=== PATIENT | female | born 1930 | race Caucasian/White ===

== ENCOUNTER 2021-02-27 09:12 | Emergency (ER) | payer MEDICARE, BC ==
[2021-02-27 09:46] LABS: CHLORIDE,CL 106 mEq/L (98-106); SODIUM,NA 144 mEq/L (136-145)
[2021-02-27 10:03] LABS: PTT,PARTIAL THROMBOPLSTIN TIME 36.8 SEC (23.2-32.3)
--- NOTE | 2021-02-27 11:46 | EDM.PDOC ---
ED HPI GENERAL MEDICAL PROBLEM - General Chief Complaint: General Stated Complaint: FELL Time Seen by Provider: 02/27/21 09:15 - History of Present Illness INITIAL COMMENTS - FREE TEXT/NARRATIVE: This is an 89-year-old female patient that presents to the emergency department via [facility]. Reported that patient fell at a local fpc facility in [place]. This was a unwitnessed fall per her report where they found her lying beside her bed. Unknown loss of consciousness as patient does not remember falling. EMS reported bilateral forearm skin tears that are covered and were repaired with Steri-Strips prior to arrival. Patient also has bleeding noted to the scalp that is controlled. Patient is awake alert and oriented. GCS is 15. It was reported that she does have episodes of confusion. Patient complains of lower back pain, pain to both forearms, the right shoulder, neck discomfort, and pelvic discomfort. It has been reported that she was moving all extremities. EMS does have a c-collar placed. The patient does take Coumadin per EMS report. - Related Data Allergies Allergy/AdvReac Type Severity Reaction Status Date / Time onion Allergy Other Verified 02/27/21 11:57 ED ROS GENERAL - Review of Systems Review Of Systems: See Below Constitutional: Denies: Fever, Chills, Weakness, Decreased Appetite HEENT: Reports: Hearing Loss. Denies: Ear Discharge, Ear Pain, Nosebleed, Nose Pain Respiratory: Denies: Shortness of Breath, Wheezing, Cough Cardiovascular: Reports: Blood Pressure Problem. Denies: Chest Pain, Dyspnea on Exertion Endocrine: Reports: No Symptoms GI/Abdominal: Denies: Abdominal Pain, Black Stool, Bloody Stool, Constipation, Diarrhea, Nausea : Denies: Dysuria, Flank Pain, Hematuria, Incontinence Musculoskeletal: Reports: Neck Pain, Shoulder Pain, Arm Pain, Back Pain, Muscle Pain Skin: Reports: Bruising (knees), Wound (bilateral forearms, scalp) Neurological: Reports: Confusion. Denies: Dizziness, Seizure, Trouble Speaking Psychiatric: Reports: No Symptoms Hematologic/Lymphatic: Reports: No Symptoms Immunologic: Reports: No Symptoms ED EXAM, GENERAL - Physical Exam Exam: See Below Exam Limited By: No Limitations General Appearance: Alert, WD/WN, No Apparent Distress, Mild Distress Ears: Normal External Exam, Normal Canal, Normal TMs, Hearing Loss Ear Exam: Bilateral Ear: Auricle Normal, Canal Normal, TM normal Nose: Normal Inspection, Normal Mucosa, No Blood Throat/Mouth: Normal Inspection, Normal Gums, Normal Oropharynx, Normal Voice, No Airway Compromise. No: Dysphagia, Inflammation Head: Normocephalic, Other (scalp abrasion) Neck: Normal Inspection, Tender Midline Respiratory/Chest: No Respiratory Distress, Lungs Clear, Normal Breath Sounds, Chest Non-Tender Cardiovascular: Normal Peripheral Pulses, Regular Rate, Rhythm, No Edema, No Gallop, No JVD, No Murmur, No Rub GI/Abdominal: Normal Bowel Sounds, Soft, Non-Tender. No: Distended, Guarding, Rigid, Rebound, Tender (Female) Exam: Normal External Exam. No: Vaginal Bleeding, Vaginal Discharge Rectal (Female) Exam: Deferred Extremities: Normal Range of Motion, Normal Capillary Refill, Arm Pain (bilateral arm pain at area of skin tears, right shoulder pain) Neurological: Alert, Oriented, CN II-XII Intact, Normal Cognition, Confused (at times) Psychiatric: Normal Affect, Normal Mood Skin Exam: Warm, Dry, Normal Color, Ecchymosis (bilateral knees) #1 Interpretation EKG Date: 02/27/21 Time: 09:23 Rhythm: Other (paced rhythm) [place]: Normal EKG Interpretation Comments: Paced rhythm Course - Orders/Labs/Meds Orders: Active Orders 24 hr Category Date Time Status Ready for Discharge [RC] PER UNIT ROUTINE Care 02/27/21 11:42 Ordered Cervical Spine wo Cont [CT] Stat Exams 02/27/21 09:27 Ordered Chest 1V Frontal [CR] Stat Exams 02/27/21 09:57 Ordered Head wo Cont [CT] Routine Exams 02/27/21 Ordered Lumbar Spine wo Cont [CT] Stat Exams 02/27/21 09:27 Ordered Pelvis 1V or 2V [CR] Routine Exams 02/27/21 09:22 Ordered Labs: Laboratory Tests 02/27/21 02/27/21 02/27/21 Range/Units 09:33 09:33 09:33 WBC 9.5 (4.0-11.0) 10^3/uL RBC 3.35 L (4.00-5.50) x10^6/uL Hgb 10.7 L (12.0-16.0) g/dL Hct 32.9 L (37.0-47.0) % MCV 98.2 H (83.0-97.0) fL MCH 31.9 (27.0-32.0) pg MCHC 32.5 (32.0-36.0) g/dL RDW Coeff of Thang 13.0 (11.0-15.0) % Plt Count 251 (150-400) 10^3/uL Immature Gran % (Auto) 0.1 (0.0-4.9) % Neut % (Auto) 70.5 (41-71) % Lymph % (Auto) 19.8 L (24-44) % [place] % (Auto) 8.1 (0-10) % Eos % (Auto) 1.1 (0-6) % Baso % (Auto) 0.4 (0-1) % Neut # (Auto) 6.69 (1.80-8.00) x10^3/uL Lymph # (Auto) 1.88 (0.60-5.00) 10^3/uL [place] # (Auto) 0.77 (0.00-1.50) 10^3/uL Eos # (Auto) 0.10 (0.00-1.50) 10^3/uL Baso # (Auto) 0.04 (0.00-0.50) 10^3/uL Immature Gran # (Auto) 0.01 (0.00-0.49) 10^3/uL PT 28.1 H (9.7-12.3) SEC INR 2.76 H (0.92-1.18) APTT 36.8 H (23.2-32.3) SEC Sodium 144 (136-145) mEq/L Potassium 4.4 (3.5-5.0) mEq/L Chloride 106 (98-106) mEq/L Carbon Dioxide 25 (21-32) mmol/L BUN 26 H (7-18) mg/dL Creatinine 1.0 (0.6-1.0) mg/dL Est Cr Clr Drug Dosing TNP Estimated GFR (MDRD) 52 L (>=60) mL/min Glucose 131 H (75-99) mg/dL Calcium 9.1 (8.4-10.1) mg/dL Total Bilirubin 0.5 (0.0-1.0) mg/dL AST 22 (15-37) U/L ALT 18 (12-78) U/L Alkaline Phosphatase 66 (46-116) U/L Total Protein 6.7 (6.4-8.2) g/dL Albumin 3.4 (3.4-5.0) g/dL Urine Color (YELLOW) Urine Appearance (CLEAR) Urine pH (4.5-8.0) Ur Specific [place] (1.003-1.020) Urine Protein (NEGATIVE) mg/dL Urine Glucose (UA) (NEGATIVE) mg/dL Urine Ketones (NEGATIVE) mg/dL Urine Occult Blood (NEGATIVE) Urine Nitrite (NEGATIVE) Urine Bilirubin (NEGATIVE) Urine Urobilinogen (0.2-1.0) EU/dL Ur Leukocyte Esterase (NEGATIVE) Urine RBC (0-5) /HPF Urine WBC (0-5) /HPF Urinalysis Comment 02/27/21 Range/Units 10:23 WBC (4.0-11.0) 10^3/uL RBC (4.00-5.50) x10^6/uL Hgb (12.0-16.0) g/dL Hct (37.0-47.0) % MCV (83.0-97.0) fL MCH (27.0-32.0) pg MCHC (32.0-36.0) g/dL RDW Coeff of Thang (11.0-15.0) % Plt Count (150-400) 10^3/uL Immature Gran % (Auto) (0.0-4.9) % Neut % (Auto) (41-71) % Lymph % (Auto) (24-44) % [place] % (Auto) (0-10) % Eos % (Auto) (0-6) % Baso % (Auto) (0-1) % Neut # (Auto) (1.80-8.00) x10^3/uL Lymph # (Auto) (0.60-5.00) 10^3/uL [place] # (Auto) (0.00-1.50) 10^3/uL Eos # (Auto) (0.00-1.50) 10^3/uL Baso # (Auto) (0.00-0.50) 10^3/uL Immature Gran # (Auto) (0.00-0.49) 10^3/uL PT (9.7-12.3) SEC INR (0.92-1.18) APTT (23.2-32.3) SEC Sodium (136-145) mEq/L Potassium (3.5-5.0) mEq/L Chloride (98-106) mEq/L Carbon Dioxide (21-32) mmol/L BUN (7-18) mg/dL Creatinine (0.6-1.0) mg/dL Est Cr Clr Drug Dosing Estimated GFR (MDRD) (>=60) mL/min Glucose (75-99) mg/dL Calcium (8.4-10.1) mg/dL Total Bilirubin (0.0-1.0) mg/dL AST (15-37) U/L ALT (12-78) U/L Alkaline Phosphatase (46-116) U/L Total Protein (6.4-8.2) g/dL Albumin (3.4-5.0) g/dL Urine Color Yellow (YELLOW) Urine Appearance Clear (CLEAR) Urine pH 7.0 (4.5-8.0) Ur Specific [place] 1.025 H (1.003-1.020) Urine Protein 30 H (NEGATIVE) mg/dL Urine Glucose (UA) Negative (NEGATIVE) mg/dL Urine Ketones Trace H (NEGATIVE) mg/dL Urine Occult Blood Negative (NEGATIVE) Urine Nitrite Negative (NEGATIVE) Urine Bilirubin Negative (NEGATIVE) Urine Urobilinogen 0.2 (0.2-1.0) EU/dL Ur Leukocyte Esterase Negative (NEGATIVE) Urine RBC 0-5 (0-5) /HPF Urine WBC Not seen (0-5) /HPF Urinalysis Comment Departure - Departure Time of Disposition: 11:43 Disposition: Home, Self-Care 01 Clinical Impression: Back pain, Contusion of knee, Scalp abrasion, non-infected, Skin tear of forear m without complication, Unwitnessed fall - Discharge Information *PRESCRIPTION DRUG MONITORING PROGRAM REVIEWED*: Not Applicable *COPY OF PRESCRIPTION DRUG MONITORING REPORT IN PATIENT STACY: Not Applicable Instructions: Fall Prevention in the Home, Adult, [id number] Additional Instructions: 1. Monitor BP daily x 1 week. 2. May use tylenol as needed for pain 3. Activity as tolerated with walker. 4. Follow-up with PCP if BP remains elevated. 5. Call or return if any further concerns. - Problem List & Annotations (1) Back pain SNOMED Code(s): 662123958 Code(s): M54.9 - DORSALGIA, UNSPECIFIED Status: Acute Qualifiers: Back pain location: low back pain Chronicity: chronic Back pain lateralit y: bilateral Sciatica presence: without sciatica Qualified Code(s): M54.50 - Low back pain, unspecified; G89.29 - Other chronic pain (2) Skin tear of forearm without complication SNOMED Code(s): 752257922, 283753529 Code(s): S51.819A - LACERATION WITHOUT FOREIGN BODY OF UNSP FOREARM, INIT ENCNTR Status: Acute Qualifiers: Encounter type: initial encounter Laterality: unspecified laterality Qualified Code(s): S51.819A - Laceration without foreign body of unspecified forearm, initial encounter (3) Contusion of knee SNOMED Code(s): 76384227 Code(s): S80.00XA - CONTUSION OF UNSPECIFIED KNEE, INITIAL ENCOUNTER Status: Acute (4) Scalp abrasion, non-infected SNOMED Code(s): 42387899, 398832852 Code(s): S00.01XA - ABRASION OF SCALP, INITIAL ENCOUNTER Status: Acute (5) Unwitnessed fall SNOMED Code(s): 2788381 Code(s): R29.6 - REPEATED FALLS Status: Acute - My Orders Last 24 Hours: My Active Orders 02/27/21 Head wo Cont [CT] Routine 02/27/21 09:22 Pelvis 1V or 2V [CR] Routine 02/27/21 09:27 Cervical Spine wo Cont [CT] Stat Lumbar Spine wo Cont [CT] Stat 02/27/21 09:57 Chest 1V Frontal [CR] Stat 02/27/21 11:42 Ready for Discharge [RC] PER UNIT ROUTINE - Assessment/Plan Last 24 Hours: My Active Orders 02/27/21 Head wo Cont [CT] Routine 02/27/21 09:22 Pelvis 1V or 2V [CR] Routine 02/27/21 09:27 Cervical Spine wo Cont [CT] Stat Lumbar Spine wo Cont [CT] Stat 02/27/21 09:57 Chest 1V Frontal [CR] Stat 02/27/21 11:42 Ready for Discharge [RC] PER UNIT ROUTINE Plan: This is an 89-year-old female that presented by ambulance having fallen at a local [facility]pc facility unwitnessed. Upon arrival to the ED patient was awake alert and answering questions appropriately. Patient was wearing a c- collar and is on Coumadin. Labs, x-ray and CT scans were performed. Labs were unremarkable. She does have an INR of 2.7. A UA was collected showing no evidence of infection. X-ray chest, pelvis, and CT of head, C-spine, and L- spine obtained. X-ray of chest and pelvis were personally reviewed with no acute injury noted. CT scan scan of the head, C-spine, lumbar spine were personally reviewed and awaited results from the radiologist. Age indeterminant wedge fractures of T11, T12 and L2. Significant scoliosis of the lumbar spine. C-spine with no evidence of acute injury. CT had showed no evidence of intra cranial bleed or acute processes. Patient was identified to have unrelated concerns with gallstones in the gallbladder and constipation. Upon receiving imaging results, palpated the cervical spine without significant midline discomfort and c-collar was removed at that time. Patient was assisted to a sitting position and then to a standing position with the use of gait belt and walker. The patient stated her pain to her lower back was similar to her chronic pain. Patient was able to ambulate in hallway. She did have an elevated blood pressure in the 180s to 190s systolic throughout the emergency department stay. Patient is on carvedilol as well as lisinopril to control blood pressure and it is unknown if she received her medications this morning. See nurses note and longterm documentation for past medical history, surgical history, medications, allergies, and social history. I personally reviewed the longterm records. Plan to return to fpc facility. Patient may take Tylenol as needed for pain control as prescribed and her as needed medications. Blood pressure should be monitored through the next week daily and if it remains elevated she should be reassessed by her primary care provider. The skins tears to both forearms are appropriately secured with Steri-Strips. The scalp abrasion requires no treatment. Should be kept clean and dry and monitor for signs of any infection. May return to activity as tolerated using a walker.
== END 2021-02-27 12:30 | disposition home or self-care (01) ==
LOC: CC.ED 09:12
DX: S51.812A Laceration without foreign body of left forearm, initial encounter (principal); S51.811A Laceration without foreign body of right forearm, initial encounter; S06.9X9A Unspecified intracranial injury with loss of consciousness of unspecified duration, initial encounter; S80.01XA Contusion of right knee, initial encounter; S80.02XA Contusion of left knee, initial encounter; S00.01XA Abrasion of scalp, initial encounter; M54.50 Low back pain, unspecified; Z91.018 Allergy to other foods; W18.39XA Other fall on same level, initial encounter; Y92.129 Unspecified place in nursing home as the place of occurrence of the external cause
CPT/HCPCS: 36415; 70450; 71045; 72125; 72131; 72170; 80053; 81001; 85025; 85610; 85730; 93005; 93010; 99284; 99284-25

== ENCOUNTER 2021-02-28 14:15 | Observation (INO) | payer MEDICARE, BC ==
[2021-02-28] MEDS ORDERED: Diphtheria,Pertussis(Acell),Tetanus Vaccine 0.5 ML Syringe IM ONE ×2 (14:34→20:00)
[2021-02-28 14:49] LABS: CHLORIDE,CL 105 mEq/L (98-106); SODIUM,NA 144 mEq/L (136-145)
--- NOTE | 2021-02-28 15:10 | EDM.PDOC ---
ED HPI GENERAL MEDICAL PROBLEM - General Chief Complaint: Trauma Stated Complaint: Fall, confusion Time Seen by Provider: 02/28/21 14:25 Source of Information: Reports: Patient, Snf Records History Limitations: Reports: Altered Mental Status - History of Present Illness INITIAL COMMENTS - FREE TEXT/NARRATIVE: This is an 89 female presents to the emergency department for fall [facility] a local [facility] via [facility]. Patient was seen yesterday after a fall as well. Reportedly fell backwards and struck the back of her head from a standing position. Has increased confusion today. The [facility] staff thought they had saw a right side facial droop. Patient is awake and able to converses and described how she fell today. Patient does not remember being seen in the emergency department yesterday. [facility] staff reports that she is fallen 3 times in the last 24 hours. Patient denies chest pain, shortness of breath, any recent fever or illness. The [facility] staff is present in the ER and reported that she had a "goose egg" on the back of her head. Patient does report pain to the left hip and pelvic area which is unchanged from yesterday. Onset: Today Onset Date: 02/28/21 Onset Time: 13:15 Location: Reports: Head Quality: Reports: Ache Severity: Moderate Worsens with: Reports: None Associated Symptoms: Reports: Confusion, Headaches. Denies: Diaphoresis, Fever/Chills, Loss of Appetite, Nausea/Vomiting, Shortness of Breath - Related Data Allergies Allergy/AdvReac Type Severity Reaction Status Date / Time aspirin Allergy Unknown Other Verified 02/28/21 18:15 hydrocodone Allergy Unknown Other Verified 02/28/21 18:15 iodine Allergy Unknown Other Verified 02/28/21 18:15 onion Allergy Unknown Other Verified 02/28/21 18:15 Penicillins Allergy Unknown Other Verified 02/28/21 18:15 Home Meds: Home Meds Acetaminophen [Tylenol] 1,000 mg PO Q8H PRN 02/27/21 [History] Cetirizine HCl [All Day Allergy Relief] 10 mg PO BEDTIME 02/27/21 [History] DULoxetine HCl [Duloxetine HCl] 90 mg PO DAILY 02/27/21 [History] Docusate Sodium/Sennosides [Senokot-S] 1 tab PO BID 02/27/21 [History] Furosemide 20 mg PO DAILY 02/27/21 [History] Levothyroxine Sodium [Levothyroxine] 100 mcg PO DAILY 02/27/21 [History] Loteprednol Etabonate [Lotemax] 1 drop OP DAILY 02/27/21 [History] Melatonin 5 mg PO BEDTIME 02/27/21 [History] Multivitamin/Folic Acid/Biotin [Hair, Skin and Nails Tablet] 2 each PO DAILY 02/27/21 [History] Omeprazole 20 mg PO DAILY 02/27/21 [History] Oxybutynin Chloride 2.5 mg PO BID 02/27/21 [History] Saccharomyces Boulardii 250 mg PO DAILY 02/27/21 [History] Warfarin [Coumadin] 4 mg PO DAILY 02/27/21 [History] Warfarin [Coumadin] 5 mg PO DAILY 02/27/21 [History] lisinopriL [Lisinopril] 10 mg PO DAILY 02/27/21 [History] polyethylene glycoL 3350 [MiraLAX] 17 gm PO DAILY 02/27/21 [History] ED ROS GENERAL - Review of Systems Review Of Systems: See Below Constitutional: Reports: Weakness. Denies: Fever, Chills HEENT: Reports: Hearing Loss. Denies: Vertigo Respiratory: Denies: Shortness of Breath, Wheezing, Cough Cardiovascular: Denies: Chest Pain, Dyspnea on Exertion, Edema, Syncope GI/Abdominal: Denies: Abdominal Pain, Black Stool, Bloody Stool, Nausea, Vomiting : Denies: Dysuria, Flank Pain, Frequency, Hematuria, Incontinence Skin: Reports: Bruising (bilateral knee bruising), Wound (Old skin tears to bilateral forearms) Neurological: Reports: Confusion, Headache. Denies: Numbness Psychiatric: Reports: Confusion Hematologic/Lymphatic: Reports: No Symptoms Immunologic: Reports: No Symptoms ED EXAM, GENERAL - Physical Exam Exam: See Below Exam Limited By: Altered Mental Status (confusion) General Appearance: Alert, Mild Distress Ears: Normal External Exam, Hearing Loss Nose: Normal Inspection, No Blood Throat/Mouth: Normal Inspection, Normal Lips, Normal Voice, No Airway Compromise Head: Normocephalic, Other (tenderness and swelling to occipital region, subtle right side facial droop noted) Neck: Supple, Non-Tender, Full Range of Motion Respiratory/Chest: No Respiratory Distress, Lungs Clear, Normal Breath Sounds, No Accessory Muscle Use, Chest Non-Tender. No: Decreased Breath Sounds, Crackles, Rales, Rhonchi, Wheezing Cardiovascular: Normal Peripheral Pulses, Regular Rate, Rhythm, No Gallop, No JVD, No Murmur, No Rub GI/Abdominal: Normal Bowel Sounds, Soft, Non-Tender, No Organomegaly, No Distention, No Abnormal Bruit, Pelvis Stable, Other (left side tenderness to pelvis upon palpation) (Female) Exam: Deferred Rectal (Female) Exam: Deferred Back Exam: Normal Inspection, Full Range of Motion, Decreased Range of Motion. No: CVA Tenderness (L), CVA Tenderness (R) Extremities: Normal Inspection, Normal Range of Motion, Normal Capillary Refill, Pedal Edema (wearing CAROL hose) Neurological: Alert, CN II-XII Intact, Confused, Disoriented, Memory Loss Remote Events Psychiatric: Normal Affect, Normal Mood Skin Exam: Warm, Dry, Normal Color, Ecchymosis (bilateral knees), Wound/Incision (old skin tears to the bilateral forearms with steri-strips) Lymphatic: No Adenopathy #1 Interpretation EKG Date: 02/28/21 Time: 14:30 Rhythm: Other (Paced rhythms) [place]: Normal QRS: Normal ST-T: Normal QT: Normal Comparison: No Change EKG Interpretation Comments: Paced rhythm without acute ST changes. Course - Vital Signs Last Recorded V/S: Last Vital Signs Temp 97.3 F 02/28/21 18:21 Pulse 68 02/28/21 18:21 Resp 20 02/28/21 18:21 BP 167/82 H 02/28/21 18:21 Pulse Ox 95 02/28/21 18:21 - Orders/Labs/Meds Orders: Active Orders 24 hr Category Date Time Status Head wo Cont [CT] Stat Exams 02/28/21 14:26 Taken Medication Orders Acetaminophen (Acetaminophen 325 Mg Tab) 650 mg PO Q4H PRN PRN Reason: Pain (Mild 1-3)/fever Clopidogrel Bisulfate (Clopidogrel 75 Mg Tab) 75 mg PO DAILY [facility] Duloxetine HCl (Duloxetine 30 Mg Cap) 90 mg PO DAILY [facility] Furosemide (Furosemide 20 Mg Tab) 20 mg PO DAILY [facility] Lisinopril (Lisinopril 10 Mg Tab) 10 mg PO DAILY [facility] Non-Formulary Medication (Levothyroxine Sodium [Levothyroxine]) 100 mcg PO DAILY [facility] Non-Formulary Medication (Loteprednol Etabonate [Lotemax]) 1 drop OP DAILY [facility] Non-Formulary Medication (Omeprazole [Omeprazole]) 20 mg PO DAILY [facility] Ondansetron HCl (Ondansetron 4 Mg Tab.Dis) 4 mg PO Q6H PRN PRN Reason: nausea, able to take PO Oxybutynin Chloride (Oxybutynin 5 Mg Tab) 2.5 mg PO BID [facility] Polyethylene Glycol (Polyethylene Glycol 3350 Powder 17 Gm Packet) 17 gm PO DAILY [facility] Sodium Chloride (Sodium Chloride 0.9% 10 Ml Syringe) 10 ml FLUSH ASDIRECTED PRN PRN Reason: Keep Vein Open Warfarin Sodium (Warfarin 5 Mg Tab) 4 mg PO DAILY [facility] Warfarin Sodium (Warfarin 5 Mg Tab) 5 mg PO DAILY [facility] Labs: Laboratory Tests 02/28/21 02/28/21 02/28/21 Range/Units 14:32 14:32 14:32 WBC 7.4 (4.0-11.0) 10^3/uL RBC 3.31 L (4.00-5.50) x10^6/uL Hgb 10.6 L (12.0-16.0) g/dL Hct 32.4 L (37.0-47.0) % MCV 97.9 H (83.0-97.0) fL MCH 32.0 (27.0-32.0) pg MCHC 32.7 (32.0-36.0) g/dL RDW Coeff of Thang 13.2 (11.0-15.0) % Plt Count 271 (150-400) 10^3/uL Immature Gran % (Auto) 0.4 (0.0-4.9) % Neut % (Auto) 63.6 (41-71) % Lymph % (Auto) 23.9 L (24-44) % [place] % (Auto) 8.4 (0-10) % Eos % (Auto) 3.2 (0-6) % Baso % (Auto) 0.5 (0-1) % Neut # (Auto) 4.70 (1.80-8.00) x10^3/uL Lymph # (Auto) 1.77 (0.60-5.00) 10^3/uL [place] # (Auto) 0.62 (0.00-1.50) 10^3/uL Eos # (Auto) 0.24 (0.00-1.50) 10^3/uL Baso # (Auto) 0.04 (0.00-0.50) 10^3/uL Immature Gran # (Auto) 0.03 (0.00-0.49) 10^3/uL PT 28.0 H (9.7-12.3) SEC INR 2.75 H (0.92-1.18) Sodium 144 (136-145) mEq/L Potassium 4.0 (3.5-5.0) mEq/L Chloride 105 (98-106) mEq/L Carbon Dioxide 28 (21-32) mmol/L BUN 24 H (7-18) mg/dL Creatinine 1.2 H (0.6-1.0) mg/dL Est Cr Clr Drug Dosing TNP Estimated GFR (MDRD) 42 L (>=60) mL/min Glucose 133 H (75-99) mg/dL Calcium 9.2 (8.4-10.1) mg/dL Total Bilirubin 0.6 (0.0-1.0) mg/dL AST 22 (15-37) U/L ALT 21 (12-78) U/L Alkaline Phosphatase 61 (46-116) U/L Troponin I High Sens 405.9 H* (<=51) pg/mL C-Reactive Protein < 0.2 L (0.2-0.8) mg/dL Total Protein 6.8 (6.4-8.2) g/dL Albumin 3.3 L (3.4-5.0) g/dL Meds: Medications Generic Name Dose Route Start Last Admin Trade Name Freq PRN Reason Stop Dose Admin Acetaminophen 650 mg 02/28/21 18:21 Acetaminophen 325 Mg Tab PO Q4H PRN Pain (Mild 1-3)/fever Clopidogrel Bisulfate 75 mg 03/01/21 08:00 Clopidogrel 75 Mg Tab PO DAILY [facility] Duloxetine HCl 90 mg 03/01/21 08:00 Duloxetine 30 Mg Cap PO DAILY [facility] Furosemide 20 mg 03/01/21 08:00 Furosemide 20 Mg Tab PO DAILY [facility] Lisinopril 10 mg 03/01/21 08:00 Lisinopril 10 Mg Tab PO DAILY [facility] Non-Formulary Medication 100 mcg 03/01/21 08:00 Levothyroxine Sodium [Levothyroxine] PO DAILY [facility] Non-Formulary Medication 1 drop 03/01/21 08:00 Loteprednol Etabonate [Lotemax] OP DAILY [facility] Non-Formulary Medication 20 mg 03/01/21 08:00 Omeprazole [Omeprazole] PO DAILY [facility] Ondansetron HCl 4 mg 02/28/21 18:21 Ondansetron 4 Mg Tab.Dis PO Q6H PRN nausea, able to take PO Oxybutynin Chloride 2.5 mg 02/28/21 20:00 Oxybutynin 5 Mg Tab PO BID [facility] Polyethylene Glycol 17 gm 03/01/21 08:00 Polyethylene Glycol 3350 Powder 17 Gm Packet PO DAILY [facility] Sodium Chloride 10 ml 02/28/21 18:21 Sodium Chloride 0.9% 10 Ml Syringe FLUSH ASDIRECTED PRN Keep Vein Open Warfarin Sodium 4 mg 03/01/21 08:00 Warfarin 5 Mg Tab PO DAILY [facility] Warfarin Sodium 5 mg 03/01/21 08:00 Warfarin 5 Mg Tab PO DAILY [facility] Discontinued Medications Generic Name Dose Route Start Last Admin Trade Name Freq PRN Reason Stop Dose Admin Clopidogrel Bisulfate 300 mg 02/28/21 18:13 Clopidogrel 75 Mg Tab PO 02/28/21 18:14 ONETIME ONE Diphtheria/Tetanus/Acell Pertussis 0.5 ml 02/28/21 14:34 Diphtheria,Pertussis(Acell),Tetanus Vaccine 0.5 Ml Syringe IM 02/28/21 14:35 .ONCE ONE - Re-Assessments/Exams Free Text/Narrative Re-Assessment/Exam: This is a pleasant 89 year old female that has been evaluated for fall and possible stroke. The patient was seen yesterday for a fall at local [facility]. Had more confusion today and possibly a slight facial droop. She had struck the back of her head today. Previous injuries in HPI and ROS. A CT head was completed and compared to the one obtained yesterday. I personally reviewed these and saw no evidence of acute bleed or infarct. Radiologist report confirmed that there was no acute findings although had chronic findings of previous infarcts. Labs obtained included CBC, CMP, CRP, INR, and Troponin. CBC, CMP, and CRP unremarkable. Troponin 405. 12-lead EKG unchanged from yeste rday showing an atrial paced rhythm without acute ST changes. Discussed findings with family and Leanna, daughter and POA, would like patient admitted to monitor Troponin levels. They do not want the patient to be transferred. She also wanted us to speak with cardiology and discuss patient's findings to determine if there would be any changes to medical management or treatment. I spoke with Dr. Horn at [facility] via [facility]. He recommended to administer ASA 325 mg, however patient has ASA listed as and allergy. He wanted us to find out what the true allergy was and recommended not to give it if angioedema or hives. Family unsure of what allergy is, so it will not be given. He further said if patient would require angiogram that he would hold the Coumadin and start heparin if the INR drops to less that 2. The family has expressed they would not want transfer for angiogram. Lastly, he stated that he would suggest 300 mg Plavix po tonight and keep her on 75 mg Plavix po daily indefinitely along with Coumadin that is presently prescribed. These recommendations have been discussed with family and will plan to start the Plavix per cardiology recommendation and family approval. Will admit to the medical surgical unit observation with telemetry, serial Troponin, and neuro checks. Departure - Departure Time of Disposition: 17:48 Disposition: Refer to Observation Condition: Fair Clinical Impression: Elevated troponin level, Confusion Fall Qualifiers: Encounter type: subsequent encounter Qualified Code(s): W19.XXXD - Unspecified fall, subsequent encounter - Discharge Information *PRESCRIPTION DRUG MONITORING PROGRAM REVIEWED*: Not Applicable *COPY OF PRESCRIPTION DRUG MONITORING REPORT IN PATIENT STACY: Not Applicable
[2021-02-28] MEDS ORDERED: Clopidogrel 75 MG Tab PO ONE (18:13)
[2021-02-28] MEDS ORDERED: Sodium Chloride 0.9% 10 ML Syringe FLUSH PRN (18:21)
[2021-02-28] MEDS ORDERED: Ondansetron 4 MG Tab.DIS PO PRN (18:21)
[2021-02-28] MEDS ORDERED: Acetaminophen 325 MG Tab PO PRN (18:21)
[2021-02-28] MEDS ORDERED: Oxybutynin 5 MG Tab PO ONE (20:00)
[2021-03-01] MEDS: Polyethylene Glycol 3350 Powder 17 GM Packet PO SCH (07:41)
[2021-03-01] MEDS: Clopidogrel 75 MG Tab PO SCH (07:41)
[2021-03-01] MEDS ORDERED: LOTEPREDNOL ETABONATE OP SCH (08:00)
[2021-03-01] MEDS: OMEPRAZOLE 20 MG PO SCH (08:54)
[2021-03-01] MEDS: Furosemide 20 MG Tab **PTOM PO SCH (08:55)
[2021-03-01] MEDS ORDERED: CARVEDILOL 12.5 MG PO SCH (09:30)
[2021-03-01] MEDS: CARVEDILOL 12.5 MG PO SCH ×2 (09:32→17:59)
[2021-03-01] MEDS: OXYBUTYNIN 5 MG PO SCH ×2 (09:32→19:41)
--- NOTE | 2021-03-01 12:59 | PN ---
DATE: 03/01/2021 S: Mrs. Joyce is an 89-year-old from [facility] who has had multiple falls in the last few days. She was evaluated initially after hitting her head and had a negative CT scan. She basically was sent back to the home, fell again, and has been progressively weak. So, they sent her back here. She was evaluated and had a followup CAT scan. Her lab work, including her INR, has been fine, and she was ultimately admitted due to her weakness and also the fact that she had an elevated troponin of 352. She is anticoagulated for, I believe, atrial fibrillation. She has had an aspirin allergy. Cardiology was notified and felt that she should be put on aspirin, heparin, etc. Family did not want a lot of aggressive done and certainly did not want her transferred for angiogram. O: GENERAL: She is pleasant and appropriate to conversation, although she keeps her eyes closed, and she does look a little tired. NECK: She has flat neck veins. RESPIRATORY: Her lungs sounds are without signs of failure. CARDIAC: Tones are irregular. ABDOMEN: Soft. EXTREMITIES: She has no peripheral edema. LABORATORY DATA: Lab work is reviewed from today, and her troponin is down from 352 to 269. Prior EKG shows a paced rhythm. ASSESSMENT: 1. MULTIPLE FALLS. 2. WEAKNESS. 3. POSSIBLE NON-ST ELEVATION MYOCARDIAL INFARCTION. P: Family does not want aggressive measures. We will keep her one more day and make sure her troponin continues to decline. Try to get her a little stronger before going back to the home. Clinically, she looks pretty normal today. She denies any and all chest pain. She will not take aspirin, and plan at this time is to not put her on heparin for 48 hours for a possible cardiac event. CODY/LIDA /[id number]
[2021-03-01] MEDS ORDERED: DULOXETINE 60 MG PO SCH (20:00)
[2021-03-01] MEDS ORDERED: ATORVASTATIN 40 MG PO SCH (20:00)
[2021-03-01] MEDS ORDERED: DULOXETINE 30 MG PO SCH (20:00)
[2021-03-01] MEDS ORDERED: WARFARIN 4 MG PO SCH (20:00)
[2021-03-02] MEDS: OMEPRAZOLE 20 MG PO SCH (06:32)
[2021-03-02] MEDS: Clopidogrel 75 MG Tab PO SCH (07:52)
[2021-03-02] MEDS: CARVEDILOL 12.5 MG PO SCH (07:52)
[2021-03-02] MEDS: Polyethylene Glycol 3350 Powder 17 GM Packet PO SCH (07:52)
[2021-03-02] MEDS: OXYBUTYNIN 5 MG PO SCH (07:54)
[2021-03-02] MEDS: Furosemide 20 MG Tab **PTOM PO SCH (07:55)
--- NOTE | 2021-03-02 09:53 | PCM.DCSUM1 ---
Discharge Summary - Hospital Course Free Text/Narrative:: Mrs. Joyce 89-year-old female was admitted 2 days ago with multiple falls and increased confusion. She was evaluated twice in the emergency and was admitted following the second visit. She had also had increased confusion per reports from half-way and family upon returning. CT of head showed no acute changes and labs were obtained. INR in therapeutic range. UA negative. Troponin was elevated at 405.9. The decision was made with family to admit and trend the troponin levels, consult cardiology, and add Plavix for pharmacological management. Family wishes that no aggressive measures to be taken but continue medical management. Troponin levels have trended down from 405.9 on admit to 153.9 today. This is down from 269.8 yesterday. Plavix was started per cardiology recommendation receiving an initial dose of 300 mg and then 75 mg po daily. Patient has not had any chest pain. She is awake but has periods of confusion that is unchanged. Plan to discharge home to the [facility]. Discussed obtaining and echocardiogram with daughter and family wishes not to order this exam. Will continue Plavix 75 mg po daily and continuing all current medications. Follow-up with PCP in one week with INR at that time and as needed. HPI Initial Comments: This is a 64 year old female that was seen and evaluated in the ED with multiple falls and increased confusion from [facility]. Patient has several radiological exams including a CT of head. Patient had struck the back of her head. The CT scans showed no acute findings. The half-way staff and family stated that she had increased confusion. Was admitted to trend troponin levels, consult cardiology for medical management, as family wishes no aggressive measures. Diagnosis: Stroke: No - Discharge Data Discharge Date: 03/02/21 Discharge Disposition: Home, Self-Care 01 Condition: Fair - Referral to Home Health Primary Care Physician: PCP Unknown - Patient Instructions Diet: Usual Diet as Tolerated Activity: As Tolerated - Discharge Plan *PRESCRIPTION DRUG MONITORING PROGRAM REVIEWED*: Not Applicable *COPY OF PRESCRIPTION DRUG MONITORING REPORT IN PATIENT STACY: Not Applicable Prescriptions/Med Rec: Clopidogrel [Plavix] 75 mg PO DAILY 30 Days #30 tablet Home Medications: Home Meds Acetaminophen [Tylenol] 1,000 mg PO Q8H PRN 02/27/21 [History] Cetirizine HCl [All Day Allergy Relief] 10 mg PO BEDTIME 02/27/21 [History] DULoxetine HCl [Duloxetine HCl] 90 mg PO DAILY 02/27/21 [History] Docusate Sodium/Sennosides [Senokot-S] 1 tab PO BID 02/27/21 [History] Furosemide 20 mg PO DAILY 02/27/21 [History] Levothyroxine Sodium [Levothyroxine] 100 mcg PO DAILY 02/27/21 [History] Loteprednol Etabonate [Lotemax] 1 drop OP DAILY 02/27/21 [History] Melatonin 5 mg PO BEDTIME 02/27/21 [History] Multivitamin/Folic Acid/Biotin [Hair, Skin and Nails Tablet] 2 each PO DAILY 02/27/21 [History] Omeprazole 20 mg PO DAILY 02/27/21 [History] Oxybutynin Chloride 2.5 mg PO BID 02/27/21 [History] Saccharomyces Boulardii 250 mg PO DAILY 02/27/21 [History] Warfarin [Coumadin] 4 mg PO DAILY 02/27/21 [History] Warfarin [Coumadin] 5 mg PO DAILY 02/27/21 [History] lisinopriL [Lisinopril] 10 mg PO DAILY 02/27/21 [History] polyethylene glycoL 3350 [MiraLAX] 17 gm PO DAILY 02/27/21 [History] atorvaSTATin [Lipitor] 40 mg PO BEDTIME 03/01/21 [History] carvediloL [Coreg] 12.5 mg PO BID 03/01/21 [History] Clopidogrel [Plavix] 75 mg PO DAILY 30 Days #30 tablet 03/02/21 [Rx] Forms: ED Department Discharge Referrals: PCP,Unknown [Primary Care Provider] - - Discharge Summary/Plan Comment DC Time >30 min.: Yes Total # of Minutes for Discharge Time: 45 minutes with assessment, discussion with family, and discharge orders. Discharge Summary/Plan Comment: 1. Follow-up with Dr. Wilder in one week and as needed. 2. INR check prior to appointment. 3. Start Plavix 75 mg by mouth daily. 4. Continue all regularly scheduled and prescription medications. 5. Fall prevention education provided. 6. Activity as tolerated. 7. Diet as usual. 8. Call or return with any questions or worsening condition. - General Info Date of Service: 03/02/21 Admission Dx/Problem (Free Text: Elevated Troponin, Falls, Confusion, Possible non-elevated stemi Subjective Update: Most joyce is an 89-year-old female from the half-way who had fallen multiple times and evaluated twice in the emergency department. She had been evaluated and CT scans were obtained with no changes. She returned a second time to the emergency department after falling and striking the back of her head. Was reevaluated at that time a CT head was unchanged. INR was within therapeutic range. She was found to have increased weakness and confusion. She does have a pacemaker and EKG showed a paced rhythm. Troponin was elevated upon admission. Functional Status: Reports: Pain Controlled, Tolerating Diet - Review of Systems General: Reports: Weakness. Denies: Fever, Fatigue, Malaise, Chills HEENT: Reports: No Symptoms Pulmonary: Denies: Shortness of Breath, Pleuritic Chest Pain, Cough Cardiovascular: Denies: Chest Pain, Palpitations, Dyspnea on Exertion, Lightheadedness Gastrointestinal: Reports: Decreased Appetite. Denies: Abdominal Pain, Constipation, Diarrhea, Nausea, Vomiting Genitourinary: Denies: Dysuria, Frequency, Burning Musculoskeletal: Reports: Back Pain Skin: Reports: No Symptoms Neurological: Reports: Confusion, Weakness. Denies: Headache, Numbness, Paresthesia, Syncope, Trouble Speaking Psychiatric: Reports: Confusion - Patient Data Vitals - Most Recent: Last Vital Signs Temp 97.2 F 03/02/21 08:00 Pulse 80 03/02/21 08:00 Resp 15 03/02/21 08:00 BP 142/63 H 03/02/21 08:00 Pulse Ox 94 L 03/02/21 08:00 Weight - Most Recent: 122 lb 12.8 oz Lab Results - Last 24 hrs: Laboratory Results - last 24 hr 03/02/21 Range/Units 07:11 Troponin I High Sens 153.9 H* (<=51) pg/mL Med Orders - Current: Current Medications Acetaminophen (Acetaminophen 325 Mg Tab) 650 mg PO Q4H PRN PRN Reason: Pain (Mild 1-3)/fever Last Admin: 03/02/21 09:30 Dose: 650 mg Documented by: Carvedilol (Carvedilol 12.5 Mg Tab Ptom) 12.5 mg PO BIDMEALS [facility] Last Admin: 03/02/21 07:52 Dose: 12.5 mg Documented by: Clopidogrel Bisulfate (Clopidogrel 75 Mg Tab) 75 mg PO DAILY [facility] Last Admin: 03/02/21 07:52 Dose: 75 mg Documented by: Duloxetine HCl (Duloxetine 30 Mg Cap Ptom) 30 mg PO BEDTIME [facility] Last Admin: 03/01/21 19:42 Dose: 30 mg Documented by: Furosemide (Furosemide 20 Mg Tab Ptom) 20 mg PO DAILY [facility] Last Admin: 03/02/21 07:55 Dose: 20 mg Documented by: Levothyroxine Sodium (Levothyroxine 100 Mcg Tab Ptom) 100 mcg PO AC BREAKFAST [facility] Last Admin: 03/02/21 07:53 Dose: 100 mcg Documented by: Lisinopril (Lisinopril 10 Mg Tab Ptom) 10 mg PO DAILY [facility] Last Admin: 03/02/21 07:54 Dose: 10 mg Documented by: Non-Formulary Medication (Loteprednol Etabonate [Lotemax]) 1 drop OP DAILY [facility] Omeprazole [ Omeprazole] 20 Mg Tablet.Dr Ptom 0 mg PO ACBREAKFAST [facility] Last Admin: 03/02/21 06:32 Dose: 20 mg Documented by: Warfarin 4mg Tab (Ptom) 0 each PO [email or web address] [facility] Last Admin: 03/01/21 19:41 Dose: 1 each Documented by: Duloxetine 60mg Cap (Ptom) 0 each PO BEDTIME [facility] Last Admin: 03/01/21 19:40 Dose: 1 each Documented by: Atorvastatin [ Lipitor] 40 Mg Tablet Ptom 0 mg PO BEDTIME [facility] Last Admin: 03/01/21 19:40 Dose: 40 mg Documented by: Ondansetron HCl (Ondansetron 4 Mg Tab.Dis) 4 mg PO Q6H PRN PRN Reason: nausea, able to take PO Oxybutynin Chloride (Oxybutynin 5 Mg Tab Ptom) 2.5 mg PO BID [facility] Last Admin: 03/02/21 07:54 Dose: 2.5 mg Documented by: Polyethylene Glycol (Polyethylene Glycol 3350 Powder 17 Gm Packet) 17 gm PO DAILY [facility] Last Admin: 03/02/21 07:52 Dose: 17 gm Documented by: Sodium Chloride (Sodium Chloride 0.9% 10 Ml Syringe) 10 ml FLUSH ASDIRECTED PRN PRN Reason: Keep Vein Open Warfarin Sodium (Warfarin 5 Mg Tab Ptom) 5 mg PO [id number] [facility] Discontinued Medications Carvedilol (Carvedilol 12.5 Mg Tab Ptom) 12.5 mg PO BID [facility] Clopidogrel Bisulfate (Clopidogrel 75 Mg Tab) 300 mg PO ONETIME ONE Stop: 02/28/21 18:14 Last Admin: 02/28/21 18:51 Dose: 300 mg Documented by: Diphtheria/Tetanus/Acell Pertussis (Diphtheria,Pertussis(Acell),Tetanus Vaccine 0.5 Ml Syringe) 0.5 ml IM .ONCE ONE Stop: 02/28/21 20:01 Last Admin: 02/28/21 19:46 Dose: 0.5 ml Documented by: Oxybutynin Chloride (Oxybutynin 5 Mg Tab) 2.5 mg PO ONETIME ONE Stop: 02/28/21 20:01 Last Admin: 02/28/21 19:35 Dose: 2.5 mg Documented by: - Exam General: Reports: Alert, No Acute Distress, Other (episodes of confusion) HEENT: Reports: Pupils Equal, Pupils Reactive Neck: Reports: Supple, Trachea Midline, No JVD Lungs: Reports: Clear to Auscultation, Normal Respiratory Effort Cardiovascular: Reports: Regular Rate, Regular Rhythm, Murmurs (aortic murmur). Denies: Gallops, Rubs GI/Abdominal Exam: Normal Bowel Sounds, Soft, Non-Tender (Female) Exam: Deferred Rectal (Female) Exam: Deferred Back Exam: Reports: Normal Inspection, Other (tenderness lumbar spine) Extremities: Normal Inspection, No Pedal Edema Skin: Reports: Warm, Dry, Intact, Ecchymosis (bilateral knee bruising) Wound/Incisions: Reports: Healing Well, Dressing Dry and Intact Neurological: Reports: No New Focal Deficit, Normal Speech Psy/Mental Status: Reports: Alert, Normal Affect, Normal Mood
== END 2021-03-02 12:37 | disposition home or self-care (01) ==
LOC: CC.ED 14:15 → CC.MS 17:27 → UNDOADMOB 17:27 → CC.MS 17:37
PROVIDERS: ADMIT Physician Assistant Medical; ATTEND Family Medicine
DX: R41.0 Disorientation, unspecified (principal); R29.6 Repeated falls; R53.1 Weakness; W18.30XA Fall on same level, unspecified, initial encounter; Z88.8 Allergy status to other drugs, medicaments and biological substances; Z88.0 Allergy status to penicillin; Z88.5 Allergy status to narcotic agent; Z91.018 Allergy to other foods; Z79.899 Other long term (current) drug therapy
CPT/HCPCS: 36415; 70450; 80053; 84484; 85025; 85610; 86140; 90471; 90715; 93005; 99285; A9270; G0378; 93010